=== PATIENT | female | born 1995 | race Caucasian/White ===

== ENCOUNTER 2018-08-27 16:27 | Emergency (ER) | payer OTHER ==
[2018-08-27] MEDS ORDERED: NS 1,000 ML IV ONE (17:06)
--- NOTE | 2018-08-27 17:06 | EDPHY ---
HPI/HX/ROS/PE/MDM Narrative: CHIEF COMPLAINT: Possible allergic reaction to antibiotics HPI: This patient is a 23-year-old female with recent diagnosis of UTI. She presents with concern for a possible allergic reaction to her antibiotics. Her symptoms began several days ago with back pain and diaphoresis at night. She was evaluated at urgent care yesterday and was diagnosed with UTI by UA. She started Bactrim this morning around 8:30. The patient continued to feel unwell and vomited around 12:00. Following this, she developed dizziness, paresthesias , and weakness. Endorses dysuria and urinary frequency. She has tried to stay well-hydrated with water, Gatorade, and cranberry juice. The patient denies any hives or other rash. She has no known allergies to medications. She has never taken Bactrim in the past. REVIEW OF SYSTEMS: A comprehensive 10 system review of systems is otherwise negative aside from elements mentioned in the history of present illness and medical decision making. PMH: Appendectomy. Splenomegaly. SOCIAL HISTORY: Friend at bedside. Student at [employer]. Single. Does not abuse tobacco, drugs, or alcohol. PHYSICAL EXAM: General:Patient is alert, in no acute distress. ENT:Eyes are normal to inspection. ENT inspection normal. Neck: Normal inspection. Full range of motion. Respiratory:No respiratory distress. Breath sounds normal bilaterally. Cardiovascular: Regular rate and rhythm. Strong peripheral pulses. Normal cap refill. Abdomen:The abdomen is nontender to palpation. There are no peritoneal signs. There are normal bowel sounds. Back: Normal to inspection. No tenderness to palpation. Skin: Normal color. No rash. Warm and dry. Extremities: Normal appearance. Full range of motion. Neuro: Oriented x3. Normal motor function. Normal sensory function. ED Course: 23 year old female presents with concerns for possible allergic reaction to Bactrim, started for treatment of UTI. No urticaria, rash, airway swelling, difficulty breathing. We discussed that her symptoms are likely more consistent with possible worsening infection than an allergic reaction. IV established. Plan for labs including CBC, chemistries, UA, BHCG. Plan to administer 1L IV NS . Reviewed laboratory studies. UA shows presence of blood and bacteria, no nitrates or leuk esterase. Laboratory studies otherwise largely unremarkable, no elevated WBC. Reassessed patient. She now explains her symptoms began about 7-10 days ago with left flank pain and intermittent dysuria. She also reports she was here 1- 2 years ago for appendicitis, and had a complicated surgery following. She additionally reports history of splenomegaly. Plan for CT abdomen/pelvis for further evaluation. Patient continues to have discomfort, plan to administer 15mg IV Toradol for pain relief. 19:[address] Castillo, radiologist. CT shows left pyelonephritis. Reassessed patient. Discussed imaging results. Administered 1g IV Rocephin for treatment of pyelonephritis. Plan to discharge home in good condition with prescription for Macrobid. She will discontinue Bactrim. Follow up and return precautions discussed. The patient is comfortable with this plan. MDM: This patient presents with overall malaise in the setting of a single recent pill of Bactrim for UTI, prescribed at urgent care. Her UA here in the ED is almost negative. Additionally, patient states that left flank pain began long before urinary symptoms, making this a very unusual presentation of UTI. This prompted CTAP which indicates pyelonephritis. I have given her IV ceftriaxone here in the ED and will upgrade antibiotics to Levaquin. I see no sign of allergic reaction - I think her symptoms are secondary to pyelonephritis. - Data Points Imaging Results: Imaging Impressions Abdomen CT 08/27/18 18:51 Impression: Focal pyelonephritis involving the upper pole of left kidney. Results called to Dr. Magana at 7:30 PM Imaging: Discussed imaging studies w/ bingo caller Radiologist Laboratory Results: Laboratory Results 08/27/18 17:20 08/27/18 17:20 08/27/18 08/27/18 08/27/18 17:50 17:20 17:20 WBC RBC Hgb Hct MCV MCH MCHC RDW Plt Count MPV Neut % (Auto) Lymph % (Auto) [place] % (Auto) Eos % (Auto) Baso % (Auto) Nucleat RBC Rel Count Absolute Neuts (auto) Absolute Lymphs (auto) Absolute Monos (auto) Absolute Eos (auto) Absolute Basos (auto) Absolute Nucleated RBC Immature Gran % Immature Gran # Sodium 133 mEq/L L mEq/L (135-145) Potassium 3.6 mEq/L mEq/L (3.5-5.2) Chloride 96 mEq/L L mEq/L (97-110) Carbon Dioxide 25 mEq/l mEq/l (22-31) Anion Gap 12 mEq/L mEq/L (6-14) BUN 6 mg/dL L mg/dL (7-23) Creatinine 0.7 mg/dL mg/dL (0.6-1.0) Estimated GFR > 60 Glucose 119 mg/dL H mg/dL (70-100) Calcium 9.5 mg/dL mg/dL (8.5-10.4) Beta HCG, Qual NEGATIVE Urine Color PALE YELLOW Urine Appearance CLEAR Urine pH 8.0 H (5.0-7.5) Ur Specific [place] < 1.001 L (1.002-1.030) Urine Protein NEGATIVE (NEGATIVE) Urine Ketones NEGATIVE (NEGATIVE) Urine Blood 1+ H (NEGATIVE) Urine Nitrate NEGATIVE (NEGATIVE) Urine Bilirubin NEGATIVE (NEGATIVE) Urine Urobilinogen NEGATIVE EU EU (0.2-1.0) Ur Leukocyte Esterase NEGATIVE (NEGATIVE) Urine RBC 1-3 /hpf /hpf (0-3) Urine WBC 1-3 /hpf /hpf (0-3) Ur Epithelial Cells TRACE /lpf /lpf (NONE-1+) Urine Bacteria 1+ /hpf H /hpf (NONE SEEN) Urine Glucose NEGATIVE (NEGATIVE) 08/27/18 17:20 WBC 5.59 10^3/uL 10^3/uL (3.80-9.50) RBC 4.07 10^6/uL L 10^6/uL (4.18-5.33) Hgb 13.9 g/dL g/dL (12.6-16.3) Hct 39.0 % % (38.0-47.0) MCV 95.8 fL fL (81.5-99.8) MCH 34.2 pg H pg (27.9-34.1) MCHC 35.6 g/dL g/dL (32.4-36.7) RDW 11.1 % L % (11.5-15.2) Plt Count 160 10^3/uL 10^3/uL (150-400) MPV 8.8 fL fL (8.7-11.7) Neut % (Auto) 62.4 % % (39.3-74.2) Lymph % (Auto) 19.3 % % (15.0-45.0) [place] % (Auto) 17.5 % H % (4.5-13.0) Eos % (Auto) 0.0 % L % (0.6-7.6) Baso % (Auto) 0.4 % % (0.3-1.7) Nucleat RBC Rel Count 0.0 % % (0.0-0.2) Absolute Neuts (auto) 3.49 10^3/uL 10^3/uL (1.70-6.50) Absolute Lymphs (auto) 1.08 10^3/uL 10^3/uL (1.00-3.00) Absolute Monos (auto) 0.98 10^3/uL H 10^3/uL (0.30-0.80) Absolute Eos (auto) 0.00 10^3/uL L 10^3/uL (0.03-0.40) Absolute Basos (auto) 0.02 10^3/uL 10^3/uL (0.02-0.10) Absolute Nucleated RBC 0.00 10^3/uL 10^3/uL (0-0.01) Immature Gran % 0.4 % % (0.0-1.1) Immature Gran # 0.02 10^3/uL 10^3/uL (0.00-0.10) Sodium Potassium Chloride Carbon Dioxide Anion Gap BUN Creatinine Estimated GFR Glucose Calcium Beta HCG, Qual Urine Color Urine Appearance Urine pH Ur Specific [place] Urine Protein Urine Ketones Urine Blood Urine Nitrate Urine Bilirubin Urine Urobilinogen Ur Leukocyte Esterase Urine RBC Urine WBC Ur Epithelial Cells Urine Bacteria Urine Glucose Medications Given: Discontinued Medications Sodium Chloride (Ns) 1,000 mls @ 0 mls/hr IV EDNOW ONE; Wide Open PRN Reason: Protocol Stop: 08/27/18 17:07 Last Admin: 08/27/18 17:21 Dose: 1,000 mls Ceftriaxone Sodium/Dextrose (Rocephin 1 Gm (Premix)) 50 mls @ 100 mls/hr IV EDNOW ONE PRN Reason: Protocol Stop: 08/27/18 20:20 Last Admin: 08/27/18 20:18 Dose: 50 mls Ketorolac Tromethamine (Toradol) 15 mg IVP EDNOW ONE Stop: 08/27/18 18:57 Last Admin: 08/27/18 19:11 Dose: 15 mg General Time Seen by Provider: 08/27/18 16:54 Initial Vital Signs: Initial Vital Signs Temperature (C) 36.3 C 08/27/18 16:31 Heart Rate 120 H 08/27/18 16:31 Respiratory Rate 18 08/27/18 16:31 Blood Pressure 130/94 H 08/27/18 16:31 O2 Sat (%) 95 08/27/18 16:31 O2 Delivery Mode Room Air Allergies/Adverse Reactions: No Known Allergies Allergy (Verified 08/27/18 16:36) Home Medications: Medication Instructions Recorded Bactrim DS 08/27/18 Ciprofloxacin [Cipro] 500 mg PO BID #14 tab 08/27/18 Departure - Departure Disposition: Home, Routine, Self-Care Clinical Impression: Pyelonephritis Condition: Good Instructions: Urinary Tract Infection in Women (ED), Kidney Infection (ED), Flank Pain (ED) Additional Instructions: Please stop taking Bactrim. Take Macrobid as prescribed. It is important to finish your entire course of antibiotics, even if you are feeling better. Stay well hydrated. Follow-up with your primary doctor within 72 hours. Return to the Emergency Department for fever, worsening pain, flank pain or failure to improve within 72 hours. It is possible that the bacteria causing your infection is resistant to the antibiotic we've placed you on. We have sent a urine for culture, if this comes back with a resistant bacteria, we will call you at the number you provided to us. Referrals: Esteban Blanton MD [Medical Doctor] - As per Instructions Karen Bolanos MD [Medical Doctor] - As per Instructions Stand Alone Forms: School Excuse Prescriptions: Ciprofloxacin [Cipro] 500 mg PO BID #14 tab Report Scribed for: Marvin Magana Report Scribed by: Marylin Cardenas Date of Report: 08/27/18 Time of Report: 20:28 Physician Review and Approval Statement: Portions of this note were transcribed by an ED scribe. I personally performed the history, physical exam, and medical decision making; and confirm the accuracy of the information in the transcribed note.
[2018-08-27 17:36] LABS: PLATELET COUNT 160 10^3/uL (150-400)
[2018-08-27] MEDS ORDERED: IOHEXOL 300 mgI/ML (OMNIPAQUE) 150 ML BTL IV ONE (18:56)
[2018-08-27] MEDS ORDERED: KETOROLAC 30 MG/1 ML SDV IVP ONE (18:56)
[2018-08-27 20:44] VITALS: BP 122/65
== END 2018-08-27 20:44 | disposition home or self-care (01) ==
DX: N12 Tubulo-interstitial nephritis, not specified as acute or chronic (principal); N39.0 Urinary tract infection, site not specified
CPT/HCPCS: 96365; J0696; J1885; Q9967